=== PATIENT | female | born 1990 | race Caucasian/White ===

== ENCOUNTER 2019-06-12 11:08 | Emergency (ER) | payer OTHER ==
[~2019-06-12] VITALS: Ht 152.4 cm; Wt 61.7 kg
[~2019-06-12 11:08] MED LIST: FERR325E14 PO; FOLI1TAB19 PO; PREN-234 PO
[2019-06-12 11:25] VITALS: BP 124/71
[2019-06-12] MEDS ORDERED: NORG1TAB13 PO (11:30)
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
--- NOTE | 2019-06-12 11:39 | NUR ---
RESIDENT AT BEDSIDE
[2019-06-12] MEDS ORDERED: TETRACAINE HCL/PF 0.5% OPTH 4 ML BTL OP ONE (11:55)
--- NOTE | 2019-06-12 11:55 | NUR ---
DR DUBON AT BEDSIDE
[2019-06-12] MEDS ORDERED: FLUORESCEIN OPTH STRIP 0.6 MG OP ONE (12:50)
[2019-06-12] MEDS ORDERED: FLUORESCEIN OPTH STRIP 0.6 MG ONE (13:04)
[2019-06-12 13:06] VITALS: BP 126/68
--- NOTE | 2019-06-12 13:06 | NUR ---
Patient discharged with v/s stable. Written and verbal after care instructions given and explained. Patient alert, oriented and verbalized understanding of instructions. Ambulatory with steady gait. All questions addressed prior to discharge. ID band removed. Patient advised to follow up with PMD IN 2-3 DAYS. Rx of SULFACETAMIDE SODIUM OPHTHALMIC SOLUTION AND ACULAR SOLUTION given. Patient educated on indication of medication including possible reaction and side effects. Opportunity to ask questions provided and answered.
== END 2019-06-12 11:35 | disposition home or self-care (01) ==
LOC: MED 11:08
DX: S05.01XA Injury of conjunctiva and corneal abrasion without foreign body, right eye, initial encounter (principal); Z79.899 Other long term (current) drug therapy; W50.0XXA Accidental hit or strike by another person, initial encounter; Y92.89 Other specified places as the place of occurrence of the external cause; Y93.89 Activity, other specified; Y99.8 Other external cause status
CPT/HCPCS: 99283

== ENCOUNTER 2020-10-24 17:07 | Emergency (ER) | payer OTHER ==
[~2020-10-24] VITALS: Ht 154.9 cm; Wt 61.2 kg
[~2020-10-24 17:07] MED LIST changes: +NORG1TAB68 PO
[2020-10-24 17:40] VITALS: BP 143/77
--- NOTE | 2020-10-24 19:45 | NUR ---
SEEN AND EXAMINED BY DAINA
[2020-10-24 20:50] VITALS: BP 121/79
--- NOTE | 2020-10-24 20:50 | NUR ---
Patient discharged with v/s stable. Written and verbal after care instructions given and explained. Patient alert, oriented and verbalized understanding of instructions. Ambulatory with steady gait. All questions addressed prior to discharge. ID band removed. Patient advised to follow up with PMD. Rx of TRAMADOL, AZITHROMYCIN, PROMETHAZINE, PRESNISONE given. Patient educated on indication of medication including possible reaction and side effects. Opportunity to ask questions provided and answered.
== END 2020-10-24 20:50 | disposition home or self-care (01) ==
LOC: MED 17:07
DX: U07.1 COVID-19 (principal); Z79.899 Other long term (current) drug therapy
CPT/HCPCS: 71045; 99283